=== PATIENT | female | born 1970 | race Caucasian/White ===

== ENCOUNTER 2022-09-07 13:17 | Emergency (ER) | payer OTHER ==
[~2022-09-07] VITALS: Ht 160 cm; Wt 93.0 kg
[2022-09-07 13:26] VITALS: BP 144/85
--- NOTE | 2022-09-07 13:29 | NUR ---
PER DR. MILLAN, CODE STROKE INITIATED.
--- NOTE | 2022-09-07 13:29 | NUR ---
PATIENT AMBULATED TO BED 10.
--- NOTE | 2022-09-07 13:30 | NUR ---
LEFT FACIAL NUMBNESS ONSET LAST NIGHT, DENIES HEADACHES. ALSO C/O BILATERAL EYE NUMBNESS. DR MILLAN EVALUATING PATIENT IN TRIAGE, CODE STROKE INITIATED.
--- NOTE | 2022-09-07 13:36 | NUR ---
PATIENT WAS TAKEN TO CT VIA [facility].
--- NOTE | 2022-09-07 13:42 | NUR ---
PATIENT RETURNED FROM CT. X-RAY AT BEDSIDE.
--- NOTE | 2022-09-07 13:43 | NUR ---
X-Ray at bedside.
--- NOTE | 2022-09-07 14:02 | NUR ---
DR AMARJIT PASCUALLOGIST AT TELE NEURO BEDSIDE
[2022-09-07 14:04] LABS: APPEARANCE,URINE CLEAR (CLEAR); BILIRUBIN,URINE NEGATIVE (NEGATIVE); BLOOD, URINE 1+ (NEGATIVE); COLOR,URINE YELLOW (YELLOW); LEUKOCYTE ESTERASE ,URINE NEGATIVE (NEGATIVE); NITRITE, URINE NEGATIVE (NEGATIVE); UGLUCOSE NEGATIVE (NEGATIVE)
--- NOTE | 2022-09-07 14:16 | NUR ---
52 Y/O FEMALE BIB DAUGHTER C/O LEFT FACIAL NUMBNESS, INTERMITTENT EYE BLURRING AND "HEAVY FEELING" ON HER NECK AND ON THE FACE. PER PT HER LAST NORMAL WAS YESTERDAY AT 0600, WHEN SHE FIRST STARTED FEELING 'HEAVINESS" ON HER FACE WHICH PROGRESSED TO NUMBNESS. PER DAUGHTER THIS MORNING NOTED LEFT SIDE OF THE LIP DROOPING. DENIES ANY LOC, HEADACHE, NUMBNESS ON THE EXTREMITIES NKA PMH: HTN, PRE DM,
[2022-09-07 14:22] LABS: PROTHROMBIN TIME 9.5 secs (10.8-13.4)
[2022-09-07 14:23] LABS: BASOPHILS % (AUTO) 0.4 % (0.0-2.0); EOSINOPHILS # (AUTO) 0.1 K/uL (0-0.4); HEMOGLOBIN 14.4 g/dL (12.0-16.0); LYMPHOCYTES # (AUTO) 2.3 K/uL (2.5-16.5); LYMPHOCYTES % (AUTO) 22.3 % (20.5-51.1); MEAN CORPUSCULAR HEMOGLOBIN 30 pg (27-31); MEAN CORPUSCULAR HGB CONC 34 g/dL (33-37); MEAN CORPUSCULAR VOLUME 87.4 fL (80-94); MONOCYTES # (AUTO) 0.7 K/uL (0.8-1.0); MONOCYTES % (AUTO) 6.4 % (1.7-9.3); NEUTROPHILS # (AUTO) 7.3 K/uL (1.8-7.7); NEUTROPHILS % (AUTO) 69.9 % (42.2-75.2); PLATELET COUNT (AUTO) 424 K/uL (140-450); RED CELL DISTRIBUTION WIDTH 13.6 % (11.6-13.7); WHITE BLOOD COUNT (AUTO) 10.5 K/uL (4.8-10.8)
--- NOTE | 2022-09-07 14:26 | NUR ---
PATIENT MOVED TO BED 8.
[2022-09-07 14:27] LABS: ALBUMIN 3.8 g/dL (3.4-5.0); ANION GAP 14.5 (8-16); ASPARTATE AMINOTRANSFERASE 19 U/L (15-37); CARBON DIOXIDE 26.2 mmol/L (21-32); CHLORIDE 104 mmol/L (98-107); CREATININE 1.2 mg/dL (0.6-1.3); GFR ARICAN-AMERICAN 61 mL/min (>90); GLUCOSE 161 mg/dL (74-106); POTASSIUM 3.7 mmol/L (3.5-5.1); SODIUM SERUM 141 mmol/L (136-145); TOTAL BILIRUBIN 0.5 mg/dL (0.0-1.0); UREA NITROGEN, BLOOD 18 mg/dL (7-18)
[2022-09-07 14:36] VITALS: BP 139/88
--- NOTE | 2022-09-07 14:47 | NUR ---
DR MILLAN AT BEDSIDE FOR REEVAL
[2022-09-07] MEDS ORDERED: PRED20TA5 PO (15:03)
[2022-09-07] MEDS ORDERED: VALA1TAB40 PO (15:03)
[2022-09-07] MEDS ORDERED: POLY15SO74 OP (15:03)
[2022-09-07] MEDS ORDERED: [UNRECOGNIZED DRUG - CODE] OP (15:03)
--- NOTE | 2022-09-07 15:30 | NUR ---
Patient discharged with v/s stable. Written and verbal after care instructions given and explained. Patient alert, oriented and verbalized understanding of instructions. Ambulatory with steady gait. All questions addressed prior to discharge. ID band removed. Patient advised to follow up with PMD. Rx of REFRESH RPM OINTMENT, ARTIFICIAL TEARS, DELTASONE, VALACYCLOVIR given. Patient educated on indication of medication including possible reaction and side effects. Opportunity to ask questions provided and answered.
== END 2022-09-07 15:30 | disposition home or self-care (01) ==
LOC: MED 13:17
DX: G51.0 Bell's palsy (principal); I10 Essential (primary) hypertension; Z79.899 Other long term (current) drug therapy
CPT/HCPCS: 36415; 70450; 71045; 80053; 81001; 81025; 84484; 85025; 85610; 85730; 86886; 86900; 86901; 87086; 93005; 99285; Q0092